=== PATIENT | male | born 1975 | race Caucasian/White ===

== ENCOUNTER 2019-04-30 19:01 | Emergency (ER) | payer MEDICAID ==
[~2019-04-30] VITALS: Ht 172.7 cm; Wt 99.8 kg
--- NOTE | 2019-04-30 19:15 | NUR ---
Patient to ER bed H1 to gown for evaluation. Side rails up.
[2019-04-30 19:20] VITALS: BP_SYST 124
--- NOTE | 2019-04-30 19:43 | NUR ---
ER Dr. Alexandra at bedside examining patient.
[2019-04-30 19:57] LABS: BASOPHILS % (AUTO) 0.3 % (0.0-2.0); EOSINOPHILS # (AUTO) 0.1 K/uL (0.0-0.4); EOSINOPHILS % (AUTO) 0.5 % (0.0-4.0); HEMATOCRIT 47.9 % (36-54); LYMPHOCYTES # (AUTO) 1.3 K/uL (1.0-5.5); LYMPHOCYTES % (AUTO) 12.9 % (20.5-51.5); MEAN CORPUSCULAR HEMOGLOBIN 30 pg (27-31); MEAN CORPUSCULAR HGB CONC 33 % (32-36); MEAN CORPUSCULAR VOLUME 90 fL (79.0-98.0); MONOCYTES # (AUTO) 0.8 K/uL (0.0-1.0); MONOCYTES % (AUTO) 7.8 % (1.7-9.3); NEUTROPHILS # (AUTO) 7.9 K/uL (1.8-7.7); NEUTROPHILS % (AUTO) 78.5 % (40.0-70.0); PLATELET COUNT (AUTO) 183 K/uL (130-430); RED BLOOD CELL COUNT(AUTO) 5.32 MIL/uL (4.2-6.2); RED CELL DISTRIBUTION WIDTH 13.2 % (9.0-15.0); WHITE BLOOD COUNT (AUTO) 10.1 K/uL (4.8-10.8)
[2019-04-30] MEDS ORDERED: DICYCLOMINE HCL 20 MG/2 ML AMP IM ONE (20:00)
[2019-04-30 20:34] LABS: ALANINE AMINOTRANSFERASE 66 U/L (12-78); ANION GAP 9 (5-15); ASPARTATE AMINOTRANSFERASE 23 U/L (10-37); CALCIUM 9.4 mg/dL (8.4-11.0); CHLORIDE 102 mmol/L (98-107); GLUCOSE 99 mg/dL (70-99); LIPASE 79 U/L (73-393); POTASSIUM 4.3 mmol/L (3.5-5.1); SODIUM SERUM 140 mmol/L (136-145); TOTAL BILIRUBIN 0.5 mg/dL (0.0-1.0); UREA NITROGEN, BLOOD 13 mg/dL (8-21)
[2019-04-30 20:46] LABS: CREATININE 0.95 mg/dL (0.55-1.30)
[2019-04-30 20:47] LABS: GFR AFRICAN AMERICAN 110 mL/min (>90)
--- NOTE | 2019-04-30 20:50 | NUR ---
Patient moved to bed 2
--- NOTE | 2019-04-30 20:50 | NUR ---
Patient brought in complaining of chest pain with left arm pain tonight. Pain has now resolved. Patient is afebrile. Denies any nausea, vomiting or diarrhea. Pain 2/10. Denies any shortness of breath. No other complaints/injuries per patient or as noted. Will continue to monitor.
--- NOTE | 2019-04-30 21:20 | NUR ---
Patient reports pain of 6/10 after administration of bentyl. MD notified.
--- NOTE | 2019-04-30 21:48 | NUR ---
new orders received.
[2019-04-30] MEDS ORDERED: MAG HYDROX/AL HYDROX/SIMETH 30 ML, DICYCLOMINE HCL 20 MG, LIDOCAINE VISCOUS 2% 15ML (PO... PO ONE ×3 (22:00)
--- NOTE | 2019-04-30 22:36 | NUR ---
Patient reports pain is 2/10. Reports feeling much better now. Denies any chest pain. MD notified
[2019-04-30 23:05] VITALS: BP_SYST 118
--- NOTE | 2019-04-30 23:05 | NUR ---
Patient given written and verbal discharge instructions and verbalizes understanding. ER MD discussed with patient the results and treatment provided. Patient in stable condition. ID arm band removed. Rx of Bentyl given. Patient educated on pain management and to follow up with PMD. Pain Scale 0/10 Opportunity for questions provided and answered. Medication side effect fact sheet provided.
== END 2019-04-30 23:05 | disposition home or self-care (01) ==
LOC: SED 19:01
DX: R10.9 Unspecified abdominal pain (principal); Z88.6 Allergy status to analgesic agent; Z88.8 Allergy status to other drugs, medicaments and biological substances
CPT/HCPCS: 36415; 71045; 80053; 83690; 84484; 85025; 93005; 99284; J0500; J2001